=== PATIENT | female | born 1975 | race Caucasian/White ===

== ENCOUNTER 2016-10-29 10:01 | Inpatient (IN) | payer OTHER, BC ==
[2016-10-29] MEDS ORDERED: SODIUM CHLORIDE 500 ML IV ONE (10:24)
[2016-10-29] MEDS ORDERED: ONDANSETRON 4 MG/2 ML VIAL IVPUSH ONE ×2 (10:40→11:34)
[2016-10-29] MEDS ORDERED: ONDANSETRON 4 MG/2 ML VIAL ONE (10:40)
--- NOTE | 2016-10-29 10:40 | PDOC ---
History of Present Illness - General Chief Complaint: Altered Mental Status Stated Complaint: FALL/NONRESPONSE Time Seen by Provider: 10/29/16 10:19 History Source: Significant Other Exam Limitations: Clinical Condition, Unresponsive - History of Present Illness Initial Comments: 10/29/16 10:35 The patient is a 41F with a PMH of DM, HTN, seizure, and kidney failure who presents to the ED via EMS. The patient's fiance is providing the history. The fiance states that the patient began to not feel well yesterday, stating that she lost her appetite. The patient wears an insulin pump and the fiance states that he last saw the pump on at 8 pm last night. The patient is also on dialysis MWF and last had dialysis on Wednesday. This morning she woke up and the fiance states that everything was ok. Around 8:20 am the fiance stepped downstairs and heard a thud, then he went back upstairs and found the patient on the floor snoring with blood dripping out of her mouth. She did not have her insulin pump on and a glucometer reading at the time was read "high". He called EMS. She was brought in by EMS and began seizing after being transferred to a bed. She was taken off seizure medications in May and apparently was on a low dose. She did not have a witnessed seizure at home. Allergies: listed Past History - Past Medical History Allergies/Adverse Reactions: Allergies Allergy/AdvReac Type Severity Reaction Status Date / Time acetaminophen [From Vicodin] Allergy Verified 10/29/16 10:12 codeine Allergy Verified 10/29/16 10:12 hydrocodone bitartrate Allergy Verified 10/29/16 10:12 [From Vicodin] oxycodone HCl [From Percocet] Allergy Verified 10/29/16 10:45 penicillinase Allergy Verified 10/29/16 10:12 tramadol Allergy Verified 10/29/16 10:45 morphine AdvReac Verified 10/29/16 10:45 Home Medications: Ambulatory Orders Atorvastatin Ca [Lipitor] 20 mg PO HS 10/29/16 Gabapentin [Neurontin] 100 mg PO DAILY 10/29/16 Hydralazine HCl 50 mg PO BID 10/29/16 Hydralazine HCl 100 mg PO TID 10/29/16 Insulin (Novolog) [Novolog -] 0 units SQ DAILY 10/29/16 Losartan Potassium [Cozaar] 100 mg PO BID 10/29/16 Metoprolol Tartrate 100 mg PO BID 10/29/16 Sevelamer Carbonate [Renvela] 800 mg NR TID 10/29/16 Dialysis: Yes (mwf) HTN: Yes Seizures: Yes (no meds) - Psycho/Social/Smoking Cessation Hx Anxiety: No Suicidal Ideation: No Smoking History: Unknown if ever smoked Have you smoked in the past 12 months: No Information on smoking cessation initiated: No Hx Alcohol Use: No Drug/Substance Use Hx: No Substance Use Type: None Review of Systems - Review of Systems Able to Perform ROS?: No *Physical Exam - Vital Signs Last Vital Signs Temp Pulse Resp BP Pulse Ox 97.8 F 109 H 23 208/98 98 10/29/16 10:26 10/29/16 10:13 10/29/16 10:13 10/29/16 10:13 10/29/16 10:13 - Physical Exam General Appearance: Yes: Nourished, Other (Responsive only to painful stimuli) HEENT: positive: ENRIQUE, Other (Small lac on L tongue, difficult to visualize full size) Neck: negative: Lymphadenopathy (R), Lymphadenopathy (L) Respiratory/Chest: positive: Lungs Clear, Normal Breath Sounds. negative: Chest Tender, Labored Respiration, Paradoxal Breathing, Crackles, Rales, Rhonchi , Stridor, Wheezing Cardiovascular: positive: Regular Rhythm, Regular Rate, S1, S2. negative: Diastolic Murmur, Systolic Murmur Gastrointestinal/Abdominal: positive: Flat, Soft. negative: Tender, Increased Bowel Sounds, Distended, Guarding, Rebound, Tenderness Extremity: negative: Pedal Edema, Swelling, Calf Tenderness Integumentary: positive: Normal Color, Dry, Warm. negative: Clammy, Diaphoresis Neurologic: positive: Motor Strength 5/5, Respond to painful stimul, Responsive (to commands). negative: Fully Oriented, Alert, Normal Mood/Affect Heart Score/ECG Review - ST and T T Wave Elevation Suggest: Electrolyte Imbalance (hyperkalemia) ED Treatment Course - LABORATORY CBC & Chemistry Diagram: 10/29/16 10:34 10/29/16 10:34 Medical Decision Making - Medical Decision Making 10/29/16 10:43 The patient is a 41F with a PMH of HTN, seizures, DM, and kidney failure who presents via EMS for AMS, seizures, and questionable DKA. Because the patient missed dialysis, electrolyte abnormalities could be the cause of her AMS. Head trauma is also suspected as a result of her fall. DKA is high on the differential due to the patient's presentation. Dr. Villalobos and I have ordered labs and imaging to rule out/in any of the above diagnoses. 10/29/16 11:26 K is 5.8, glucose is 845. Dr. Villalobos has ordered insulin drip. Will give more fluids to the patient and reassess. 10/29/16 12:33 Lab states ketones are high. She will stay on insulin drip. BNP, VBG, acetone will be ordered q4. 10/29/16 12:[address] Perez (ICU travelers' aid worker) and he accepts admission through the hospitalist service. Spoke with Dr. Jose Luis Vazquez (nephro) who said he will see the patient in the ED and dialyze in ICU. 10/29/16 13:[address] Che who will accept admission. Spoke with Dr. Vazquez at bedside and he told me he would dialyze the patient in ICU while titrating to the patient's volume status. *DC/Admit/Observation/Transfer Diagnosis at time of Disposition: Altered mental status Qualifiers: Altered mental status type: unspecified Qualified Code(s): R41.82 - Altered mental status, unspecified - Discharge Dispostion Condition at time of disposition: Stable Admit: Yes
[2016-10-29 10:45] LABS: BASOPHIL 0.9 % (0-2.0); EOSINOPHIL 2.3 % (0-4.5); MCH 25.8 pg (25.7-33.7); MCHC 30.2 g/dl (32.0-36.0); MEAN CELL VOLUME 85.6 fl (80-96); MEAN PLT VOLUME 11.4 fl (7.5-11.1); NEUTROPHILS 81.4 % (42.8-82.8); PLATELET COUNT 200 K/MM3 (134-434); RDW 17.1 % (11.6-15.6); WHITE BLOOD COUNT 12.4 K/mm3 (4.0-10.0)
--- NOTE | 2016-10-29 10:59 | PDOC ---
Attending Attestation - Resident Resident Name: New Lr - ED Attending Attestation I have performed the following: I have examined & evaluated the patient, The case was reviewed & discussed with the resident, I agree w/resident's findings & plan, Exceptions are as noted - HPI HPI: 10/29/16 10:49 41 F with h/o seizure d/o not on meds, IDDM on insulin pump, ESRD on HD MWF, HTN , presents to ER with AMS. Pt was reportedly in usual health this morning per jacqulein. While jacquelin was in bathroom, he heard a thud and found pt on the ground. He believes that she had a seizure because he saw that she bit her tongue. Pt had been complaining of some nausea yesterday. She has not had any F/ C, did not complain of ZAPATA/N/V, no CP/SOB. Jacquelin notes that her insulin pump was turned off this morning. He last saw it on yesterday. Pt's last HD session was this Wednesday. Missed yesterday's HD due to feeling unwell. Pt has had seizures in the past, was on keppra previously but was taken off of it months ago. Jacquelin denies pt having h/o DKA in the past. 10/29/16 11:06 - Physicial Exam PE: 10/29/16 10:59 GENERAL: Awake but somnolent, oriented to person, in no acute distress HEAD: No signs of trauma EYES: PERRLA, EOMI, sclera anicteric, conjunctiva clear ENT: Auricles normal inspection, hearing grossly normal, nares patent, oropharynx clear without exudates. Moist mucosa NECK: Normal ROM, supple, no lymphadenopathy, JVD, or masses LUNGS: Breath sounds equal, clear to auscultation bilaterally. No wheezes, and no crackles HEART: Regular rate and rhythm, normal S1 and S2, no murmurs, rubs or gallops ABDOMEN: Soft, nontender, normoactive bowel sounds. No guarding, no rebound. No masses EXTREMITIES: L AVF with palpable thrill, distal pulses intact NEUROLOGICAL: Cranial nerves II through XII grossly intact. Normal speech, moves all extremities, sensation intact to light touch, follows commands SKIN: Warm, Dry, normal turgor, no rashes or lesions noted. 10/29/16 11:16 - Medical Decision Making 10/29/16 11:16 41 F with ESRD, DM, Sz d/o, HTN presenting with AMS. Was in [facility] this morning. Per fiance, pt had one unwitnessed seizure and one additional seizure en route. Pt's AMS likely post-ictal. Etiology of seizure likely metabolic given critically high FSG of >600. Will r/o DKA. - Labs, VBG - CTH, CXR - 500cc bolus for hyperglycemia, cautious fluids due to ESRD - Likely insulin gtt - Dispo likely to ICU 10/29/16 13:12 Pt in DKA with + serum acetone. - Started on insulin gtt - 1L NS administered total, will hold on additional fluids unless hemodynamically unstable - Renal aware, will dialyze in ICU - Admit to ICU
[2016-10-29 11:13] LABS: ALBUMIN 2.8 g/dl (3.4-5.0); ANION GAP 11 (8-16); BILIRUBIN,TOTAL 0.4 mg/dL (0.2-1.0); CALCIUM 7.7 mg/dL (8.5-10.1); CO2 21 mmol/L (21-32); CREATININE 5.6 mg/dL (0.55-1.02); SGOT/AST 34 U/L (15-37); SGPT/ALT 79 U/L (12-78)
[2016-10-29 11:14] LABS: INR 0.99 (0.82-1.09); PROTHROMBIN TIME (PATIENT) 10.9 SEC (9.98-11.88)
[2016-10-29 11:17] LABS: ALK PHOS 304 U/L (45-117); CPK 292 IU/L (26-192); TOT PROT 6.3 g/dl (6.4-8.2); TROPONIN I < 0.02 ng/ml (0.00-0.05)
[2016-10-29 11:20] LABS: GLUCOSE,RANDOM 845 mg/dL (74-106)
--- NOTE | 2016-10-29 11:20 | EKG ---
Test Reason : Blood Pressure : / mmHG Vent. Rate : 102 BPM Atrial Rate : 102 BPM P-R Int : 142 ms QRS Dur : 076 ms QT Int : 360 ms P-R-T Axes : 066 -04 046 degrees QTc Int : 469 ms SINUS TACHYCARDIA POSSIBLE LEFT ATRIAL ENLARGEMENT BORDERLINE ECG NO PREVIOUS ECGS AVAILABLE Confirmed by ADELIA SUMMERS MD ([id number]) on 10/29/2016 11:20:33 AM Referred By: Confirmed By:ADELIA SUMMERS MD
[2016-10-29] MEDS ORDERED: INSULIN REGULAR HUMAN 100 UNITS/ML *VIAL IVPUSH ONE (11:21)
[2016-10-29] MEDS ORDERED: INSULIN REGULAR 100 UNITS in SODIUM CHLORIDE 99 ML IVPB SCH (11:30)
[2016-10-29 11:40] LABS: VENOUS BLOOD GAS HCO3 17.8 meq/L (19-25); VENOUS PH 7.26 (7.32-7.42)
[2016-10-29] MEDS ORDERED: METOCLOPRAMIDE HCL INJECTION 10 MG/2 ML VIAL IVPB ONE (12:07)
[2016-10-29] MEDS ORDERED: METOCLOPRAMIDE HCL INJECTION 10 MG/2 ML VIAL ONE (12:07)
--- NOTE | 2016-10-29 13:15 | CON.NEP ---
Consult Consult Specialty:: Nephrology (Anders/George) Referred by:: Dr. Villalobos Reason for Consultation:: ESRD on HD/AMS/Seizure - History of Present Illness Chief Complaint: AMS/Seizure History of Present Illness: This is a 41 year old woman with PMhx of ESRD on HD (Started this May,), insulin dependent diabetes, hypertension persented with AMS and suspected seizure at home with witnessed seizure in the ED. Boyfriend states that she was hypoglycemia in the AM with glucose of 36 and was given johnna jung and a few minutes later she was found on the floor. BG was ~600 when rechecked. Reports that she was off her insulin pump overnight. Pt missed dialysis yesterday because she said she felt unwell. Pt currently on insulin pump and awaiting ICU admission. 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 Cardio/Vascular: Yes: HTN Renal/: Yes: Renal Failure, Hemodialysis Endocrine: Yes: Diabetes Mellitus - Past Surgical History Additional Surgical History: HERO Graft Placement - Alcohol/Substance Use Hx Alcohol Use: No - Smoking History Smoking history: Unknown if ever smoked Have you smoked in the past 12 months: No Home Medications - Allergies Allergies/Adverse Reactions: Allergies Allergy/AdvReac Type Severity Reaction Status Date / Time acetaminophen [From Vicodin] Allergy Verified 10/29/16 10:12 codeine Allergy Verified 10/29/16 10:12 hydrocodone bitartrate Allergy Verified 10/29/16 10:12 [From Vicodin] oxycodone HCl [From Percocet] Allergy Verified 10/29/16 10:45 penicillinase Allergy Verified 10/29/16 10:12 tramadol Allergy Verified 10/29/16 10:45 morphine AdvReac Verified 10/29/16 10:45 - Home Medications Home Medications: Ambulatory Orders Atorvastatin Ca [Lipitor] 20 mg PO HS 10/29/16 Gabapentin [Neurontin] 100 mg PO DAILY 10/29/16 Hydralazine HCl 50 mg PO BID 10/29/16 Hydralazine HCl 100 mg PO TID 10/29/16 Insulin (Novolog) [Novolog -] 0 units SQ DAILY 10/29/16 Losartan Potassium [Cozaar] 100 mg PO BID 10/29/16 Metoprolol Tartrate 100 mg PO BID 10/29/16 Sevelamer Carbonate [Renvela] 800 mg NR TID 10/29/16 Family Disease History - Family Disease History Family History: Unable to Obtain Review of Systems Unable to obtain ROS, reason: beacsue of clinical statu Nephrology Consult - Height Height: 5 ft 4 in - Weight Weight: 132 lb - BMI Body Mass Index (BMI): 22.6 - Lab Results CBC,BMP: CBC, BMP 10/29/16 10:34 10/29/16 10:34 Anion Gap: Anion Gap Anion Gap 11 (8-16) 10/29/16 10:34 - Imaging Chest X-ray: Report Reviewed Cat Scan: Report Reviewed - Physical Examination Vital Signs: Vital Signs Temperature 97.8 F 10/29/16 10:26 Pulse Rate 118 H 10/29/16 12:39 Respiratory Rate 18 10/29/16 12:39 Blood Pressure 190/109 10/29/16 12:39 O2 Sat by Pulse Oximetry (%) 98 10/29/16 12:39 Constitutional: Yes: No Distress, Other (Lethargic, sleeping) Neck: Yes: Supple Cardiovascular: Yes: Tachycardia. No: Murmur, Rub Respiratory: Yes: Regular, CTA Bilaterally Gastrointestinal: Yes: Normal Bowel Sounds, Soft. No: Tenderness Renal/: No: Bladder Distention Access for Hemodialysis: AV Graft (deminished thrill) Extremities: No: Cold, Cool, Cyanosis Edema: Yes Edema: LLE: 1+, RLE: 1+ Neurological: Yes: Lethargy, Seizure Problem List - Problems (1) Seizure Code(s): R56.9 - UNSPECIFIED CONVULSIONS (2) ESRD (end stage renal disease) on dialysis Code(s): N18.6 - END STAGE RENAL DISEASE Z99.2 - DEPENDENCE ON RENAL DIALYSIS (3) Hyperkalemia Code(s): E87.5 - HYPERKALEMIA (4) Hyperglycemia Code(s): R73.9 - HYPERGLYCEMIA, UNSPECIFIED Assessment/Plan 41 year old woman with PMhx of ESRD on HD (Started this May,), insulin dependent diabetes, hypertension presented with AMS and suspected seizure at home with witnessed seizure in the ED. #Seizure/AMS CT head negative ICU admission Neurology consult Seizure and fall precautions #Hyperglycemia/? DKA PT with trace serum acteones Corrected Anion gap is 13-14 ph is ~7.31 when converted from VBG to ABG on insulin pump would be cautious with IVF given ESRD/volume overload #ESRD on HD with hyperkalemia will plan for dialysis today in the ICU HD nurse to access Hero graft for good function UF goal is ~2.5L will access for additional dialysis in am #Pseudohyponatremia Corrected Na is 145 #Leukocytosis r/o occult infection check cultures UA is pending Thank you Will follow Jose Luis Vazquez DO
[2016-10-29] MEDS ORDERED: IBUPROFEN 800 MG/8 ML IJ IVPB ONE ×2 (15:13→15:15)
[2016-10-29] MEDS ORDERED: SODIUM CHLORIDE 1,000 ML IV SCH ×2 (15:15→18:52)
--- NOTE | 2016-10-29 16:13 | CONSULT ---
Consult Consult Specialty:: PULM/CCM Referred by:: ER Reason for Consultation:: Elevated blood sugar - History of Present Illness Chief Complaint: Seizure History of Present Illness: 41 F, ESRD on HD recently started in May, MWF via a Hero graft in [place]. Additional history of insulin dependent diabetes, hypertension, and seizure D/ O. Apparently her AEDs were stopped in May. Patient had a witnessed seizure at home and apparently had a seizure in the ER. Apparently she was also hypoglycemic in the AM with glucose of 36 and was given johnna jung. A few minutes later she was found on the floor and her blood sugar was 600. Patient's insulin pump was apparently off. Lab analysis revealed severe hypergylcemia and electrolyte derrangement. Patient is not able to provide a history. 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 Cardio/Vascular: Yes: HTN Renal/: Yes: Renal Failure, Hemodialysis Endocrine: Yes: Diabetes Mellitus - Past Surgical History Additional Surgical History: HERO Graft Placement - Alcohol/Substance Use Hx Alcohol Use: No - Smoking History Smoking history: Unknown if ever smoked Have you smoked in the past 12 months: No Home Medications - Allergies Allergies/Adverse Reactions: Allergies Allergy/AdvReac Type Severity Reaction Status Date / Time codeine Allergy Verified 10/29/16 10:12 hydrocodone bitartrate Allergy Verified 10/29/16 10:12 [From Vicodin] oxycodone HCl [From Percocet] Allergy Verified 10/29/16 10:45 penicillinase Allergy Verified 10/29/16 10:12 tramadol Allergy Verified 10/29/16 10:45 morphine AdvReac Verified 10/29/16 10:45 - Home Medications Home Medications: Ambulatory Orders Atorvastatin Ca [Lipitor] 20 mg PO HS 10/29/16 Gabapentin [Neurontin] 100 mg PO DAILY 10/29/16 Hydralazine HCl 50 mg PO BID 10/29/16 Hydralazine HCl 100 mg PO TID 10/29/16 Insulin (Novolog) [Novolog -] 0 units SQ DAILY 10/29/16 Losartan Potassium [Cozaar] 100 mg PO BID 10/29/16 Metoprolol Tartrate 100 mg PO BID 10/29/16 Sevelamer Carbonate [Renvela] 800 mg NR TID 10/29/16 Review of Systems Unable to obtain ROS, reason: not able to provide Physical Exam Vital Signs: Vital Signs Temperature 102.8 F H 10/29/16 15:25 Pulse Rate 122 H 10/29/16 15:25 Respiratory Rate 26 H 10/29/16 15:25 Blood Pressure 205/97 10/29/16 15:25 O2 Sat by Pulse Oximetry (%) 98 10/29/16 14:22 Constitutional: Yes: Other (altered) Eyes: No: Sclera Icterus HENT: Yes: Atraumatic, Normocephalic Neck: Yes: Supple, Trachea Midline Cardiovascular: Yes: Tachycardia Respiratory: Yes: On Nasal O2, Tachypnea. No: Accessory Muscle Use, Intubated, Rhonchi, Stridor, Wheezes Gastrointestinal: Yes: Soft Renal/: Yes: Other (HD dependent) Musculoskeletal: Yes: WNL Extremities: Yes: WNL Edema: No Peripheral Pulses WNL: Yes Integumentary: Yes: WNL Neurological: Yes: Confusion, Lethargy. No: Facial Droop Imaging - Results Chest X-ray: Report Reviewed, Image Reviewed Cat Scan: Report Reviewed, Image Reviewed Problem List - Problems (1) Altered mental status Code(s): R41.82 - ALTERED MENTAL STATUS, UNSPECIFIED Qualifiers: Altered mental status type: unspecified Qualified Code(s): R41.82 - Altered mental status, unspecified (2) ESRD (end stage renal disease) on dialysis Code(s): N18.6 - END STAGE RENAL DISEASE Z99.2 - DEPENDENCE ON RENAL DIALYSIS (3) Seizure Code(s): R56.9 - UNSPECIFIED CONVULSIONS (4) Fever Code(s): R50.9 - FEVER, UNSPECIFIED (5) Hyperglycemic hyperosmolar nonketotic coma Code(s): E11.01 - TYPE 2 DIABETES MELLITUS WITH HYPEROSMOLARITY WITH COMA Assessment/Plan IV Insulin Cautious hydration Baig-culture Empiric ABX coverage : Vanco/Aztreonam ID consult Seizure precautions Neuro evaluation Access to be inserted (see procedure note) Follow CMP / BGM ICU monitoring Dr Oscar Total Critical Care Time: 40 Critical Care Statement: The care of this patient involved high complexity decision making to prevent further life threatening deterioration of the patient 's condition and/or to evalute & treat vital organ system(s) failure or risk of failure.
[2016-10-29] MEDS ORDERED: LORazepam 2 MG/ML SDV VIAL ONE (16:17)
[2016-10-29] MEDS ORDERED: VANCOMYCIN 1 GRAM (PRE-DOCKED) 250 ML IVPB ONE (16:22)
[2016-10-29] MEDS ORDERED: ACETAMINOPHEN 1000 MG/100 ML VIAL (NON FORMULARY) IVPB ONE (16:37)
[2016-10-29] MEDS ORDERED: AZTREONAM 2 GM in DEXTROSE 5%-WATER - 100 ML IVPB ONE (16:40)
--- NOTE | 2016-10-29 16:44 | PROC ---
Central Line Insertion Indication: Other (dialysis-no access ) Risks and Benefits Explained: Yes Consent on Chart: Yes Central Line: Dialysis Cath, Tri Lumen Sterile Technique: Yes Ultrasound Guided Assistance: Yes Position: Right Femoral Post Insertion: Yes: Other (N/A ) Sterile Dressing Applied: Yes
[2016-10-29] MEDS ORDERED: FOSPHENYTOIN SODIUM IVPB ONE (17:14)
[2016-10-29] MEDS ORDERED: SODIUM CHLORIDE IVPB ONE (17:14)
[2016-10-29 17:49] LABS: ANION GAP 10 (8-16); CALCIUM 7.3 mg/dL (8.5-10.1); CO2 22 mmol/L (21-32); CREATININE 4.9 mg/dL (0.55-1.02); GLUCOSE,RANDOM 266 mg/dL (74-106)
--- NOTE | 2016-10-29 17:49 | CONSULT ---
Consultation: REQUESTING PROVIDER: CONSULT REQUEST: ICU PCP: In [place] Dr. Konstantin Hutchinson [phone] HISTORY OF PRESENT ILLNESS: History obtained from fiance and sister. Patient is a 41 year old female with significant past medical history of Type 1 DM, Diabetic retinopathy, Hypertension, Hyperlipidemia, ESRD on dialysis MWF, seizure presented to the ED after she was found unconscious on the floor. As per the fiance, yesterday she said she wasn't feeling well, decreased appetite, had nausea but no vomiting. This morning, she woke up at 7am, finance heard a loud noise, found her on the floor. He checked stat sugar and it was 37, ice tea was given and after few minutes, she started having altered mental status, started screaming, they rechecked the blood sugar and it was 600 mg/dl, then they immediately brought her here. Angie mentions that she had similar episode in the past, had last seizure was in May,, the doctor told them that she had seizure due to hyperglycemia. Initially she was given Dilantin but it was stopped since May,. Patients last dialysis was on Wednesday. She is awaiting for pancreas and kidney transplantation in [place]. Lives in [place], came here for vacation and was planning to back in 11/09/2016. Patient transferred from ER to the ICU for further management. Emergent dialysis was started in the ICU. However, the fistula wasn't functioning hence femoral catheter was placed, dialysis total of 3.5 hours is being done, with removal of 2.5 L of fluid. Fistula was created about 2 months ago since the graft wasn't functioning. Family at bed side. Past Medical History: Type 1 DM, Diabetic retinopathy, Hypertension, Hyperlipidemia, ESRD on dialysis MWF, seizure Allergies: Codeine, Hydrocodone, Oxycodone, Penicillin Surgical Hx: Fistula in left forearm, Appendectomy, Right Knee surgery, tubal ligation Hospitalization: May, for similar medical condition Social hx:Lives in [place], has 4 kids Smoking, alcohol, drugs-denies REVIEW OF SYSTEMS: Unable to obtain ROS PHYSICAL EXAMINATION Vital Signs - 24 hr 10/29/16 10/29/16 10/29/16 14:21 14:22 15:25 Temperature 102.8 F H Pulse Rate 122 H Pulse Rate [ 120 H Radial] Respiratory 19 26 H Rate Blood Pressure 205/97 Blood Pressure 200/141 [Right Arm] O2 Sat by Pulse 92 L 98 Oximetry (%) 10/29/16 10/29/16 10/29/16 16:25 16:30 17:00 Temperature 103 F H Pulse Rate 140 H 139 H 139 H Pulse Rate [ Radial] Respiratory 23 22 23 Rate Blood Pressure 197/99 218/99 227/108 Blood Pressure [Right Arm] O2 Sat by Pulse Oximetry (%) 10/29/16 10/29/16 17:18 17:30 Temperature Pulse Rate 140 H Pulse Rate [ Radial] Respiratory 22 Rate Blood Pressure 167/129 Blood Pressure [Right Arm] O2 Sat by Pulse 100 Oximetry (%) GENERAL: Young female, drowsy but arousable, in no acute distress. HEAD: Normal with no signs of trauma. 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 EARS, NOSE, THROAT: Ears normal. Dry mucous membranes. NECK: Supple. LUNGS: Breath sounds equal, clear to auscultation bilaterally. No wheezes, and no crackles. No accessory muscle use. HEART: Tachycardic, Regular rate and rhythm, normal S1 and S2 without murmur. ABDOMEN: Soft, nontender, not distended, normoactive bowel sounds, no guarding, no rebound, no masses. No hepatomegaly or splenomegaly. MUSCULOSKELETAL: Normal range of motion at all joints. No bony deformities or tenderness. No CVA tenderness. UPPER EXTREMITIES: RIGHT:2+ pulses, warm, well-perfused. No cyanosis. No clubbing. Cap refill <2 seconds. No peripheral edema. LEFT UPPER EXT: Fistula in the left arm, swollen and tender, slightly erythematous, increased temperature. LOWER EXTREMITIES: 2+ pulses, warm, well-perfused. No calf tenderness. No peripheral edema. NEUROLOGICAL: PEERL, all four extremities range of motion normal, rest of the neuro exam couldn't be done. PSYCHIATRIC: Uncooperative. Poor eye contact. SKIN: Warm, dry, normal turgor, no rashes or lesions noted. Laboratory Results - last 24 hr 10/29/16 17:11 Random Glucose Cancelled Active Medications Generic Name Dose Route Start Last Admin Trade Name Freq PRN Reason Stop Dose Admin Chlorhexidine Gluconate 1 applic 10/29/16 22:00 Hibiclens For Decolonization - TP HS SUMMER Insulin Human Regular 100 100 mls @ 5.98 mls/hr 10/29/16 11:30 10/29/16 15:39 units/ Sodium Chloride IVPB 0.1 units/kg/hr TITR SUMMER Titration Protocol 0.1 UNITS/KG/HR Sodium Chloride 1,000 mls @ 125 mls/hr 10/29/16 15:15 10/29/16 15:32 Normal Saline - IV 125 mls/hr ASDIR SUMMER Administration Mupirocin 1 applic 10/29/16 22:00 Bactroban Ointment (For Decolonization) - NS 11/03/16 21:59 BID SUMMER Phenytoin Sodium 200 mg 10/30/16 10:00 Dilantin - PO BID SUMMER ASSESSMENT/PLAN: Patient is a 41 year old female with significant past medical history of Type 1 DM, Diabetic retinopathy, Hypertension, Hyperlipidemia, ESRD on dialysis MWF, seizure presented to the ED after she was found unconscious on the floor. # Sepsis- unknown etiology R/O infection from the fistula vs Hero catheter R/o lyme disease, lyme titres sent. R/O Meningitis, Spinal tap was done at bed side by Dr. Mcgee, CSF looks clear, csf studies sent. One dose of IV Aztreonam and IV Vancomycin 1000 gm. Blood cultures/Urine culture pending Lyme titres in am. Duplex of the left upper arm ordered, official report pending. High suspicion of infection from the blood clot in the catheter. ID consult requested urine toxicology sent Neurology: Altered Mental Status Seizure most likely secondary to Hyperglycemia Patient started having seizures in the ICU, initially was generalized tonic clonic and later it was focal, lasted for about 20 minutes despite giving Ativan. Finally stopped seizing after she received Fosphenytoin 1200mg loading dose. Dilantin 200mg IV BID to be continued. Had similar episode in the past. Head CT negative Fall precautions and aspiration precautions Discussed about the plan with Dr. Mcgee, he agrees Endocrinology: DKA vs Hyperosmolar Hyperglycemic nonketotic syndrome Serum osmolality pending On arrival, Random blood sugar was 845 with a corrected AG of 14, insulin drip @ 6units/hr was started in the ED and continued Finger stick glucose checked every hourly and BGM checked every 4 hourly After 7 hours, patients AG closed, sugar was 266, Levemir 20U given and insulin drip was stopped. Fluid changed to D5-1/2 NS @ 83mls/hr Insulin sliding scale Renal ESRD Creatinine 5.6, baseline unknown. Undergoing dialysis, 3.5 hours, 2L fluids to be removed Will repeat electrolytes post dialysis Awaiting kidney and pancreas transplant in [place]. Santana catheter placed, output- 700mls, urine culture and urine toxicology sent. Patient has had multiple surgeries in the left upper arm for fistula, Hyperkalemia without EKG changes K-5.8, Emergent dialysis was done, repeat K was 4.3 Hyponatremia Na-127 on arrival, corrected sodium 145, now repeat sodium is 135 and corrected sodium is 139 mg/dl Continue D5-1/2 NS Lactic acidosis most likely secondary to seizure Lactic acid 4.2, will trend Gentle hydration Cardiology Hypertension On arrival BP was high but now its improving during dialysis. If BP is still elevated, will give Labetolol Home meds: Hydralazine 50mg TID, Losartan 100mg BID, Metoprolol 100mg BID , will restart once patient tolerates PO Hyperlidpidemia On Statin 20mg Daily, will start once she tolerates orally. FEN IV D5-1/2 NS @ 83mls/hr Electrolytes to be checked every 4 hrly and finger stick every hrly NPO Prophylaxis For DVT-on Scds For GI: Not indicated Code Status: Full Code Dispo: Admitted in ICU. Family members at bed side. Finance Mr. Dav Antoine ); Sister Geneva Kumar [phone] Illness, Investigation and Plan of care explained to the patients sister and Jacquelin. They verbalized understanding. Case seen and discussed with Dr. Oscar. Dispo: We will continue to follow the patient. Thank you for this consultative opportunity. Visit type - Emergency Visit Emergency Visit: Yes ED Registration Date: 10/29/16 Care time: The patient presented to the Emergency Department on the above date and was hospitalized for further evaluation of their emergent condition. - New Patient This patient is new to me today: Yes Date on this admission: 10/29/16 - Critical Care Critical Care patient: Yes Total Critical Care Time (in minutes): 35 Critical Care Statement: The care of this patient involved high complexity decision making to prevent further life threatening deterioration of the patient 's condition and/or to evaluate & treat vital organ system(s) failure or risk of failure.
[2016-10-29 18:22] VITALS: BMI 25.3
[2016-10-29] MEDS ORDERED: PNEUMOC 13-VAL CONJ-DIP CRM/PF 0.5 ML DISP.SYRIN IM ONE (18:30)
[2016-10-29] MEDS ORDERED: INSULIN DETEMIR 100 UNITS/ML MDV SQ ONE (18:49)
[2016-10-29] MEDS ORDERED: DEXTROSE 5%-0.45% SALINE 1,000 ML IV SCH (19:45)
[2016-10-29 20:27] LABS: ANION GAP 7 (8-16); CALCIUM 7.6 mg/dL (8.5-10.1); CO2 29 mmol/L (21-32); CREATININE 2.4 mg/dL (0.55-1.02); GLUCOSE,RANDOM 107 mg/dL (74-106)
--- NOTE | 2016-10-29 21:12 | HP ---
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 Cardiovascular: Yes: HTN Renal/: Yes: Renal Failure, Hemodialysis ...: No (tubal ligation in past) Endocrine: Yes: Diabetes Mellitus - Smoking History Smoking history: Unknown if ever smoked Have you smoked in the past 12 months: No - Alcohol/Substance Use Hx Alcohol Use: No Home Medications - Allergies Allergies/Adverse Reactions: Allergies Allergy/AdvReac Type Severity Reaction Status Date / Time codeine Allergy Verified 10/29/16 10:12 hydrocodone bitartrate Allergy Verified 10/29/16 10:12 [From Vicodin] oxycodone HCl [From Percocet] Allergy Verified 10/29/16 10:45 penicillinase Allergy Verified 10/29/16 10:12 tramadol Allergy Verified 10/29/16 10:45 morphine AdvReac Verified 10/29/16 10:45 - Home Medications Home Medications: Ambulatory Orders Atorvastatin Ca [Lipitor] 20 mg PO HS 10/29/16 Gabapentin [Neurontin] 100 mg PO DAILY 10/29/16 Hydralazine HCl 50 mg PO BID 10/29/16 Hydralazine HCl 100 mg PO TID 10/29/16 Insulin (Novolog) [Novolog -] 0 units SQ DAILY 10/29/16 Losartan Potassium [Cozaar] 100 mg PO BID 10/29/16 Metoprolol Tartrate 100 mg PO BID 10/29/16 Sevelamer Carbonate [Renvela] 800 mg NR TID 10/29/16 Physical Examination Vital Signs: Vital Signs Temperature 97.8 F 10/29/16 19:36 Pulse Rate 121 H 10/29/16 20:05 Respiratory Rate 23 10/29/16 20:05 Blood Pressure 166/85 10/29/16 20:05 O2 Sat by Pulse Oximetry (%) 100 10/29/16 17:18 Labs: CBC, BMP 10/29/16 19:20
[2016-10-29] MEDS: PHENYTOIN SODIUM 100 MG/2 ML VIAL IVPB SCH (21:24)
[2016-10-29] MEDS ORDERED: niCARdipine HCL 25 MG/10 ML AMPUL IVPB ONE (21:26)
[2016-10-29] MEDS: NICARDIPINE 25 MG in DEXTROSE 5%-WATER - 240 ML IVPB SCH (21:38)
[2016-10-29] MEDS ORDERED: CHLORHEXIDINE GLUCONATE 4% CLEANSER FOR DECOLONIZATION TP SCH (22:00)
[2016-10-29 22:13] LABS: URINE MARIJUANA THC NEGATIVE ng/ml (CUTOFF=50)
[2016-10-29] MEDS: MUPIROCIN 2% TOPICAL OINTMENT FOR DECOLONIZATION NS SCH (22:23)
[2016-10-29] MEDS ORDERED: LIDOCAINE HCL/PF 2% SDV 5ML VIAL ONE (22:55)
--- NOTE | 2016-10-29 23:40 | CONSULT ---
Consult - text type - Consultation Consultation Note: NEUROLOGY CONSULTATION is greatly appreciate: This 41 yo woman with h/o HTN, DM and ESRD is on HD x 2 years awaiting renal transplant. On Hydralazine, atorvastatin, losartan, metoprolol, renvala, and insulin pump. On HD M, W, F. Last HD Wednesday H/O seizures in the past with Dilantin D/C'ed in May of this year. According to her partner she has felt unwell x few days and D/C'ed her pump. This AM was fine upon awakening and went to the kitchen when her Financee heard her fall and found her, stertourous with bleeding from the mouth. Hyperglycemia was subsequently documented (>600, >800). In ICU Pt was on HD when she began to exhibit generalized Tonic-clonic seizures refractory to lorazepam 2 mg x 4. Seizures stopped after Phosphenitoin 1200 PE. Now on Dilantin 200 q12 hrs. Pt remains lethargic and febrile to 103. On vancomicin and azetreonam. Procedural note: Following sterile prep Lumbar puncture was performed in the L3L4 interspace with the patient in the left lateral decubitus position. Opening pressure was 210 mm CSF with normal respiratory variations. Queckenstedt's maneuver was not performed. 15 cc of clear, non-xanthochromic CSF was removed and sent for routines, cultures, etc (see orders). The procedure was well-tolerated. EXAM: Lethargic but arousable. Pupils 5 mm reactive. Corneals +/+. Full EOM's. Withdraws all fours to pinch. IMP: Seizure disorder, type undetermined. Status epilepticus. Exacerbated by multiple toxic-metabolic factors including sepsis, hyperglycemia and electrolyte imbalance. SUGGEST: Continue antibiotics and hydration. Continue dilantin 200 mg IVPB q 12 hrs. Follow lytes and DPH levels. Thank you very much, Issac Mcgee MD
--- NOTE | 2016-10-29 23:47 | PROC ---
Lumbar Puncture Risks and Benefits Explained: Yes Consent on Chart: Yes Sterile Technique: Yes Skin prep: Chlorhexidine Position: Right lateral decubitus Site: L4-L51 Local Anesthesia: 1% Lidocaine with epi Opening Pressure(mmHg): 21cm H2O Closing Pressure(mmHg): NOT MEASURED CSF Color, Appearance: Clear Sterile Dressing Applied: Yes Remarks: Procedure done by Dr. Issac Mcgee.
[2016-10-30 00:39] LABS: CSF APPEARANCE CLEAR; CSF COLOR COLORLESS
[2016-10-30 00:40] LABS: CSF RBC 0
[2016-10-30 00:41] LABS: CSF APPEARANCE CLEAR; CSF COLOR COLORLESS; CSF RBC 0
[2016-10-30 01:09] LABS: ANION GAP 8 (8-16); CALCIUM 7.1 mg/dL (8.5-10.1); CO2 30 mmol/L (21-32); CREATININE 3.3 mg/dL (0.55-1.02); GLUCOSE,RANDOM 54 mg/dL (74-106)
[2016-10-30] MEDS ORDERED: niCARdipine HCL 25 MG/10 ML AMPUL IVPB ONE (01:43)
[2016-10-30] MEDS: NICARDIPINE 25 MG in DEXTROSE 5%-WATER - 240 ML IVPB SCH (01:53)
[2016-10-30] MEDS ORDERED: ACETAMINOPHEN 1000 MG/100 ML VIAL (NON FORMULARY) IVPB ONE (02:24)
[2016-10-30] MEDS ORDERED: DEXTROSE 50%-WATER 50 ML DISP.SYRIN ONE (03:57)
[2016-10-30 04:27] LABS: GLUCOSE,CSF 67 mg/dL (50-80)
[2016-10-30 06:07] LABS: BASOPHIL 0.5 % (0-2.0); EOSINOPHIL 0.1 % (0-4.5); MCH 25.7 pg (25.7-33.7); MCHC 31.6 g/dl (32.0-36.0); MEAN CELL VOLUME 81.5 fl (80-96); MEAN PLT VOLUME 10.9 fl (7.5-11.1); NEUTROPHILS 87.4 % (42.8-82.8); PLATELET COUNT 267 K/MM3 (134-434); RDW 16.7 % (11.6-15.6); WHITE BLOOD COUNT 15.3 K/mm3 (4.0-10.0)
[2016-10-30 06:36] LABS: CHOLESTEROL 124 mg/dL (50-200); LDL CHOLESTEROL (ONLY SJRH) 51 mg/dL (5-100)
[2016-10-30 06:43] LABS: ALBUMIN 2.2 g/dl (3.4-5.0); ANION GAP 10 (8-16); CO2 28 mmol/L (21-32); GLUCOSE,RANDOM 59 mg/dL (74-106); MAGNESIUM 1.6 mg/dL (1.8-2.4)
[2016-10-30 06:47] LABS: ALK PHOS 191 U/L (45-117); BILIRUBIN,TOTAL 0.6 mg/dL (0.2-1.0); CREATININE 3.7 mg/dL (0.55-1.02); PHOSPHOROUS 4.1 mg/dL (2.5-4.9); SGOT/AST 42 U/L (15-37); SGPT/ALT 54 U/L (12-78); TOT PROT 5.5 g/dl (6.4-8.2)
[2016-10-30 06:57] LABS: CALCIUM 6.9 mg/dL (8.5-10.1)
--- NOTE | 2016-10-30 07:10 | PN ---
Progress Note, Physician Chief Complaint: ID Full note dictated and discussed with ICU staff and . ESRD with a catheter here in [place] from [place] where she lives. Awaiting a kidney transplant was fine until yesterday when her found her unreponsive on floor at home. She is diabetic on insulin and blind. Gets dialysis at [facility] locally. Does not respond to verbal commands presently Febrile Has a catheter fistula is occluded with occlusive thrombus within the fistula. - Current Medication List Current Medications: Active Medications Chlorhexidine Gluconate (Hibiclens For Decolonization -) 1 applic TP HS SUMMER Last Admin: 10/29/16 22:24 Dose: 1 applic Dextrose/Sodium Chloride (D5-1/2ns -) 1,000 mls @ 83 mls/hr IV ASDIR SUMMER Last Admin: 10/29/16 21:39 Dose: 83 mls/hr Nicardipine HCl 25 mg/ (Dextrose) 250 mls @ 50 mls/hr IVPB TITR SUMMER; 5 MG/HR PRN Reason: Protocol Last Admin: 10/30/16 01:53 Dose: 50 mls/hr Mupirocin (Bactroban Ointment (For Decolonization) -) 1 applic NS BID SUMMER Stop: 11/03/16 21:59 Last Admin: 10/29/16 22:23 Dose: 1 applic Phenytoin Sodium (Dilantin Injection -) 200 mg IVPB BID [facility] Last Admin: 10/29/16 21:24 Dose: 200 mg - Objective Vital Signs: Vital Signs Temperature 100.8 F H 10/30/16 05:00 Pulse Rate 109 H 10/30/16 05:00 Respiratory Rate 24 10/30/16 05:00 Blood Pressure 122/62 10/30/16 05:00 O2 Sat by Pulse Oximetry (%) 100 10/29/16 21:00 Constitutional: Yes: Well Nourished, Mild Distress, Other (Does not reponsd) Eyes: Yes: WNL, Conjunctiva Clear HENT: Yes: WNL, Atraumatic, Normocephalic, Other (no petechiae) Neck: Yes: WNL, Supple Cardiovascular: Yes: Regular Rate and Rhythm, S1, S2. No: Murmur Respiratory: Yes: WNL, Regular, CTA Bilaterally Gastrointestinal: Yes: WNL, Normal Bowel Sounds, Soft Extremities: Yes: Other (Left fistula upper extremity nontender can be palpated as it enters the chest Right arm edema) Labs: CBC, BMP 10/30/16 05:15 10/30/16 05:15 INR, PTT INR 0.99 (0.82-1.09) 10/29/16 10:34 Problem List - Problems (1) ESRD (end stage renal disease) on dialysis Code(s): N18.6 - END STAGE RENAL DISEASE Z99.2 - DEPENDENCE ON RENAL DIALYSIS (2) Hyperglycemic hyperosmolar nonketotic coma Code(s): E11.01 - TYPE 2 DIABETES MELLITUS WITH HYPEROSMOLARITY WITH COMA (3) Seizure Code(s): R56.9 - UNSPECIFIED CONVULSIONS (4) Sepsis Code(s): A41.9 - SEPSIS, UNSPECIFIED ORGANISM Assessment/Plan Laboratory Tests 10/29/16 10/29/16 10/29/16 10:34 10:34 10:34 WBC Hgb Hct Plt Count Lymphocytes % INR 0.99 VBG pH POC VBG pCO2 POC VBG pO2 Sodium 127 L Potassium 5.8 H BUN Creatinine Creat Clearance w eGFR Random Glucose 845 H* Lactic Acid Total Bilirubin AST Alkaline Phosphatase Albumin Ur Leukocyte Esterase Pending CSF Appearance CSF Color CSF WBC CSF RBC 10/29/16 10/29/16 10/30/16 11:35 17:11 00:01 WBC Hgb Hct Plt Count Lymphocytes % INR VBG pH 7.26 L POC VBG pCO2 41.3 POC VBG pO2 51.9 H Sodium Potassium BUN Creatinine Creat Clearance w eGFR Random Glucose Lactic Acid 4.2 H* Total Bilirubin AST Alkaline Phosphatase Albumin Ur Leukocyte Esterase CSF Appearance Clear CSF Color Colorless CSF WBC 0 CSF RBC 0 10/30/16 10/30/16 05:15 05:15 WBC 15.3 H Hgb 10.0 L Hct 31.8 L Plt Count 267 D Lymphocytes % 7.6 L D INR VBG pH POC VBG pCO2 POC VBG pO2 Sodium Potassium BUN 24 H Creatinine 3.7 H Creat Clearance w eGFR 13.64 Random Glucose Lactic Acid Total Bilirubin 0.6 D AST 42 H D Alkaline Phosphatase 191 H D Albumin 2.2 L D Ur Leukocyte Esterase CSF Appearance CSF Color CSF WBC CSF RBC CT neg infarct CVA mass lesion abscess Assessment Sepsis syndrome ESRD Occlusion of dialysis catheter with edema of left arm from hand Diabates Visually impaired Hyperosmolar nonketotic Seizure disorder Peniciilin reaction Metabolic encephalopathy Plan As discussed with ICU team Cultures pending Vancomycin Aztreonam ESR CRP ECHO Vancom level now Consideration going forward of need to remove catheter Critical care time spent YES 40 minutes Glenn SMITH
[2016-10-30] MEDS ORDERED: DEXTROSE 10%-WATER - 1,000 ML IV SCH ×2 (08:00→12:33)
--- NOTE | 2016-10-30 08:27 | CONS ---
DATE OF CONSULTATION: DATE OF DICTATION: 10/30/2016 HISTORY OF PRESENT ILLNESS: This is a 41-year-old female who lives in [place] and is brought to the intensive care unit for evaluation of altered mental status and fever. The patient is a type 1 diabetic with retinopathy, blindness, and hypertension, who is also on chronic hemodialysis in [place] where she lives with her . She is actually up here in [place] for the last month on a transplant list for a kidney transplant. She presented to the emergency room with a seizure after she was found by her fiance unconscious on the floor. Her fiance had found her earlier in the morning on the floor and according to the notes did a stat blood sugar which was 37. She was given iced tea and sugar and brought to the emergency room. She has apparently had seizures in the past, last in May 2016, and was told that they were due to hyperglycemia. She had been given Dilantin at some point, but it apparently had been stopped now for several months. Her last dialysis was 5 days ago. The notes also indicate that she is awaiting a pancreatic transplant as well. Here, she was noted to have a blood sugar over 800 with what was thought to be hyperosmolar nonketotic electrolyte imbalance. She was also noted to be febrile and has a catheter/fistula in the left arm which is nonfunctioning. A CAT scan of the head was obtained which ruled out any stroke or abscess. A lumbar puncture was also performed which had no red cells nor white cells. After discussion with Dr. Oscar, I recommended that she be treated with vancomycin and 2 g of aztreonam as she apparently has some type of serious PENICILLIN allergy. An ultrasound of the venous fistula showed an intraluminal occlusive thrombus beginning near the distal anastomosis within the left upper extremity near the elbow and the occlusive intraluminal thrombus within the fistula graft material extending proximally within the distal graft near the level of the left subclavian vein. Blood cultures were obtained which are currently pending. At the present time, the patient is poorly responsive. She does not answer any questions. PAST MEDICAL HISTORY: As noted above. MEDICATIONS: Per the emergency room list: 1. Atorvastatin. 2. Neurontin. 3. Hydralazine. 4. Insulin. 5. Losartan. 6. Metoprolol. 7. Renvela. ALLERGIES: PENICILLIN, TRAMADOL, and MORPHINE. SOCIAL HISTORY: Engaged to be . Nonsmoker. No history of alcohol use. HIV status unknown. FAMILY HISTORY: Unobtainable at this time. REVIEW OF SYSTEMS:Respiratory: No cough, shortness of breath, hemoptysis. Cardiac: No chest pain, palpitations. History of syncope. No history of murmur. Gastrointestinal: No abdominal pain, blood per rectum, hematemesis, abdominal pain. Genitourinary: End-stage renal disease. No history of dysuria, hematuria. PHYSICAL EXAMINATION:General: She was a well-nourished appearing female, eyes closed, unwilling to open them or unable to open them, and nonresponsive to verbal stimuli. Vital Signs: Her temperature was 100.8, pulse 109, blood pressure 122/62, respirations 20. HEENT: Reveals sclerae anicteric with no conjunctival petechiae. Neck: Supple in all directions without adenopathy. Lungs: Clear to percussion and auscultation. Heart: S1, S2, regular rhythm, without audible murmur or gallop. Abdomen: Soft, nontender, without hepatosplenomegaly. Extremities: Revealed diffuse edema of the left arm with a fistula in the left upper extremity which did not appear erythematous nor did I see any tracking upward of erythema proximally. The area did not appear to be tender and no drainage or fluctuance was evident. No peripheral petechiae were noted. LABORATORY DATA: The white count is 15.3, hemoglobin 10, platelets 267 with 87% polys, 7 lymphs, 4 monos. INR 0.99. Sodium on admission 127, potassium 5.8, glucose 845, AST 34, alkaline phosphatase 304. CPK 292. Troponin 0.02. test negative. Urinalysis pending. CSF: Zero white cells, zero red cells. Cultures of urine and blood currently pending. Chest x-ray was reviewed and shows cardiomegaly with a left-sided vascular stent from the left axillary area into the right atrium. ASSESSMENT: A 41-year-old insulin-dependent diabetic on dialysis with a fistula in the left arm presents now with altered mental status, recurrent seizures, and fever. Principal diagnoses as follows: Sepsis syndrome, consider Staphylococcus gram-negative organisms related to the fistula and dialysis. Altered mental status secondary to toxic metabolic encephalopathy. Seizure disorder, recurrent, in the setting of metabolic abnormalities. Hyperosmolar nonketotic electrolyte imbalance. Visual impairment/blind. End-stage renal disease. History of PENICILLIN reaction, unknown at this point. PLAN: Patient has already been treated with an initial dose of vancomycin 1 g and 2 g of aztreonam. Cultures of blood and urine currently pending. 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 Will continue with aztreonam for now. Await vancomycin level stat this morning, ESR, CRP, echocardiogram, and further recommendations regarding fistula management once blood cultures back. Case was discussed with the ICU staff and her fiance. An HIV test will be obtained for completeness. Critical care time spent with the patient 40 minutes. GILDARDO DUMAS M.D. [id number]
[2016-10-30] MEDS ORDERED: MAGNESIUM SULF 50% (8.12 MEQ/2 ML-1 GM VIAL) IVPB ONE (08:30)
[2016-10-30] MEDS ORDERED: PT OWN MED DRAWER 7, Y5N ONE (09:13)
[2016-10-30 09:33] LABS: HIV 1 & 2 AB NEGATIVE; HIV 1 AGp24 NEGATIVE
[2016-10-30] MEDS: PHENYTOIN SODIUM 100 MG/2 ML VIAL IVPB SCH (09:45)
[2016-10-30] MEDS: MUPIROCIN 2% TOPICAL OINTMENT FOR DECOLONIZATION NS SCH (09:45)
[2016-10-30] MEDS ORDERED: PHENYTOIN NA EXTENDED 100 MG CAPSULE (FP) PO SCH (10:00)
[2016-10-30] MEDS ORDERED: AZTREONAM 0.5 GM in DEXTROSE 5%-WATER - 50 ML IVPB SCH (10:00)
--- NOTE | 2016-10-30 11:23 | PN ---
Progress Note (short form) - Note Progress Note: Renal Follow up for ESRD on HD Pt seen and examined in the ICU lethargic but responds to verbal stimuli and opens eyes for a short period of time remains febrile s/p dialysis via Right femoral catheter yesterday s/p LP ECHO shows vegetation on tip of the Hero graft catheter Vital Signs Temperature 100.6 F H 10/30/16 07:00 Pulse Rate 107 H 10/30/16 07:00 Respiratory Rate 28 H 10/30/16 07:00 Blood Pressure 128/71 10/30/16 07:00 O2 Sat by Pulse Oximetry (%) 100 10/29/16 21:00 Intake & Output 10/27/16 10/28/16 10/29/16 10/30/16 23:59 23:59 23:59 23:59 Intake Total 1050 1496 Output Total 700 Balance 350 1496 Weight 129 lb 10.109 oz Gen: Lethargic, on face mask O2 CVS: tachycardic, no murmur Lungs CTA, no rales/wheeze Abd: soft NT/ND Ext: Trace to 1+ edema, no cyanosis or clubbing CBC, BMP 10/30/16 05:15 10/30/16 05:15 Current Medications Chlorhexidine Gluconate (Hibiclens For Decolonization -) 1 applic TP HS [facility] Last Admin: 10/29/16 22:24 Dose: 1 applic Aztreonam 0.5 gm/ Dextrose 50 mls @ 100 mls/hr IVPB BID [facility] PRN Reason: Protocol Last Admin: 10/30/16 09:45 Dose: 100 mls/hr Dextrose (D10w -) 1,000 mls @ 42 mls/hr IV ASDIR [facility] Last Admin: 10/30/16 08:19 Dose: 42 mls/hr Mupirocin (Bactroban Ointment (For Decolonization) -) 1 applic NS BID [facility] Stop: 11/03/16 21:59 Last Admin: 10/30/16 09:45 Dose: 1 applic Phenytoin Sodium (Dilantin Injection -) 200 mg IVPB BID [facility] Last Admin: 10/30/16 09:45 Dose: 200 mg A/P 41 year old woman with PMhx of ESRD on HD (Started this May,), insulin dependent diabetes, hypertension presented with AMS and suspected seizure at home with witnessed seizure in the ED. #Febrile/Sepsis/Suspected Endocarditis Echo showed possible vegetation remains febrile Cultures pending CSF showed no WBC continue Abx as per ID #Seizure/AMS remains febrile on Dilatin s/p LP Neurology consult noted #ESRD on HD with hyperkalemia s/p dialysis via femoral catheter yesterday as HERO catheter was not functioning no acute indication for dialysis today Trend BUN/Cr Pt is pending transfer to tertiary care center will need to have Hero graft removed if there is a sign of vegetation Jose Luis Vazquez DO Problem List - Problems (1) Seizure Code(s): R56.9 - UNSPECIFIED CONVULSIONS (2) ESRD (end stage renal disease) on dialysis Code(s): N18.6 - END STAGE RENAL DISEASE Z99.2 - DEPENDENCE ON RENAL DIALYSIS (3) Hyperkalemia Code(s): E87.5 - HYPERKALEMIA (4) Hyperglycemia Code(s): R73.9 - HYPERGLYCEMIA, UNSPECIFIED
--- NOTE | 2016-10-30 12:36 | PN ---
Progress Note (short form) - Note Progress Note: Vascular surgery Pt seen and examined. No bruit in Hero graft. Echo shows vegetation on valve and hero graft. Pt pending transfer to tertiary care center Will need to have graft removed. Vegetation on valve will need to be addressed. Geo Chavez DO
--- NOTE | 2016-10-30 12:56 | PN ---
Teaching Attending Note Name of Resident: Pietro Bear ATTENDING PHYSICIAN STATEMENT I saw and evaluated the patient. I reviewed the resident's note and discussed the case with the resident. I agree with the resident's findings and plan as documented. SUBJECTIVE: Patient seen and examined in the ICU. Lethargic. ECHO : likely vegetation on the distal tip of the catheter and on the mitral valve. Significant other at the bedside. Update of her condition given. He has agreed for transfer to [facility] for tertiary care. No further seizures noted overnight. Cultures are still pending. Intake & Output 10/27/16 10/28/16 10/29/16 10/30/16 23:59 23:59 23:59 23:59 Intake Total 1050 1496 Output Total 700 Balance 350 1496 Weight 129 lb 10.109 oz Last Vital Signs Temp Pulse Resp BP Pulse Ox 100.6 F H 107 H 28 H 128/71 100 10/30/16 07:00 10/30/16 07:00 10/30/16 09:00 10/30/16 07:00 10/30/16 09:00 Active Medications Chlorhexidine Gluconate (Hibiclens For Decolonization -) 1 applic TP HS [facility] Last Admin: 10/29/16 22:24 Dose: 1 applic Aztreonam 0.5 gm/ Dextrose 50 mls @ 100 mls/hr IVPB BID [facility] PRN Reason: Protocol Last Admin: 10/30/16 09:45 Dose: 100 mls/hr Dextrose (D10w -) 1,000 mls @ 83 mls/hr IV ASDIR [facility] Mupirocin (Bactroban Ointment (For Decolonization) -) 1 applic NS BID [facility] Stop: 11/03/16 21:59 Last Admin: 10/30/16 09:45 Dose: 1 applic Phenytoin Sodium (Dilantin Injection -) 200 mg IVPB BID [facility] Last Admin: 10/30/16 09:45 Dose: 200 mg Constitutional: Yes: Lethargic and confused Eyes: No: Sclera Icterus HENT: Yes: Atraumatic, Normocephalic Neck: Yes: Supple, Trachea Midline Cardiovascular: Yes: Tachycardia Respiratory: Yes: On VM O2, No: Accessory Muscle Use, Intubated, Rhonchi, Stridor, Wheezes Gastrointestinal: Yes: Soft Renal/: Yes: Other (HD dependent) Musculoskeletal: Yes: WNL Extremities: Yes: WNL Edema: No Peripheral Pulses WNL: Yes Integumentary: Yes: WNL Neurological: Yes: Confusion, Lethargy. No: Facial Droop Laboratory Results - last 24 hr 10/29/16 10/29/16 10/29/16 12:46 17:11 17:11 WBC RBC Hgb Hct MCV MCH MCHC RDW Plt Count MPV Neutrophils % Lymphocytes % Monocytes % Eosinophils % Basophils % Other Cells # Sodium Potassium Chloride Carbon Dioxide Anion Gap BUN Creatinine Creat Clearance w eGFR POC Glucometer Random Glucose Cancelled Hemoglobin A1c % Lactic Acid 1.9 Calcium Phosphorus Magnesium Total Bilirubin AST ALT Alkaline Phosphatase C-Reactive Protein Total Protein Albumin Triglycerides Cholesterol Total LDL Cholesterol HDL Cholesterol CSF Appearance CSF Color CSF WBC CSF RBC CSF Neutrophils CSF Lymphocytes CSF Monocytes CSF Eosinophils CSF Basophils CSF Macrophages CSF Plasma Cells CSF Diff Comment CSF Comment CSF Glucose CSF Total Protein Random Vancomycin Opiates Screen Methadone Screen Barbiturate Screen Phencyclidine Screen Ur Amphetamines Screen MDMA (Ecstasy) Screen Benzodiazepines Screen Cocaine Screen U Marijuana (THC) Screen Hepatitis C Antibody Cancelled HIV 1&2 Antibody Screen HIV P24 Antigen 10/29/16 10/29/16 10/29/16 17:11 17:11 18:42 WBC RBC Hgb Hct MCV MCH MCHC RDW Plt Count MPV Neutrophils % Lymphocytes % Monocytes % Eosinophils % Basophils % Other Cells # Sodium 135 L Potassium 4.3 D Chloride 103 Carbon Dioxide 22 Anion Gap 10 BUN 39 H Creatinine 4.9 H Creat Clearance w eGFR POC Glucometer 145.71647 Random Glucose 266 H D Hemoglobin A1c % Lactic Acid 4.2 H* Calcium 7.3 L Phosphorus Magnesium Total Bilirubin AST ALT Alkaline Phosphatase C-Reactive Protein Total Protein Albumin Triglycerides Cholesterol Total LDL Cholesterol HDL Cholesterol CSF Appearance CSF Color CSF WBC CSF RBC CSF Neutrophils CSF Lymphocytes CSF Monocytes CSF Eosinophils CSF Basophils CSF Macrophages CSF Plasma Cells CSF Diff Comment CSF Comment CSF Glucose CSF Total Protein Random Vancomycin Opiates Screen Methadone Screen Barbiturate Screen Phencyclidine Screen Ur Amphetamines Screen MDMA (Ecstasy) Screen Benzodiazepines Screen Cocaine Screen U Marijuana (THC) Screen Hepatitis C Antibody HIV 1&2 Antibody Screen HIV P24 Antigen 10/29/16 10/29/16 10/29/16 19:20 19:30 19:41 WBC RBC Hgb Hct MCV MCH MCHC RDW Plt Count MPV Neutrophils % Lymphocytes % Monocytes % Eosinophils % Basophils % Other Cells # Sodium 137 Potassium 3.7 Chloride 101 Carbon Dioxide 29 D Anion Gap 7 L BUN 17 D Creatinine 2.4 H D Creat Clearance w eGFR POC Glucometer Random Glucose 107 H D Hemoglobin A1c % Lactic Acid 3.0 H* Calcium 7.6 L Phosphorus Magnesium Total Bilirubin AST ALT Alkaline Phosphatase C-Reactive Protein Total Protein Albumin 2.9 L Triglycerides Cholesterol Total LDL Cholesterol HDL Cholesterol CSF Appearance CSF Color CSF WBC CSF RBC CSF Neutrophils CSF Lymphocytes CSF Monocytes CSF Eosinophils CSF Basophils CSF Macrophages CSF Plasma Cells CSF Diff Comment CSF Comment CSF Glucose CSF Total Protein Random Vancomycin Opiates Screen Methadone Screen Barbiturate Screen Phencyclidine Screen Ur Amphetamines Screen MDMA (Ecstasy) Screen Benzodiazepines Screen Cocaine Screen U Marijuana (THC) Screen Hepatitis C Antibody HIV 1&2 Antibody Screen HIV P24 Antigen 10/29/16 10/29/16 10/29/16 19:43 20:58 21:00 WBC RBC Hgb Hct MCV MCH MCHC RDW Plt Count MPV Neutrophils % Lymphocytes % Monocytes % Eosinophils % Basophils % Other Cells # Sodium Potassium Chloride Carbon Dioxide Anion Gap BUN Creatinine Creat Clearance w eGFR POC Glucometer 122.03178 108.81980 Random Glucose Hemoglobin A1c % Lactic Acid Calcium Phosphorus Magnesium Total Bilirubin AST ALT Alkaline Phosphatase C-Reactive Protein Total Protein Albumin Triglycerides Cholesterol Total LDL Cholesterol HDL Cholesterol CSF Appearance CSF Color CSF WBC CSF RBC CSF Neutrophils CSF Lymphocytes CSF Monocytes CSF Eosinophils CSF Basophils CSF Macrophages CSF Plasma Cells CSF Diff Comment CSF Comment CSF Glucose CSF Total Protein Random Vancomycin Opiates Screen Negative Methadone Screen Negative Barbiturate Screen Negative Phencyclidine Screen Negative Ur Amphetamines Screen Negative MDMA (Ecstasy) Screen Negative Benzodiazepines Screen Negative Cocaine Screen Negative U Marijuana (THC) Screen Negative Hepatitis C Antibody HIV 1&2 Antibody Screen HIV P24 Antigen 10/29/16 10/29/16 10/29/16 22:12 23:17 23:19 WBC RBC Hgb Hct MCV MCH MCHC RDW Plt Count MPV Neutrophils % Lymphocytes % Monocytes % Eosinophils % Basophils % Other Cells # Sodium Potassium Chloride Carbon Dioxide Anion Gap BUN Creatinine Creat Clearance w eGFR POC Glucometer 110.22743 87.07570 Random Glucose Hemoglobin A1c % Lactic Acid Calcium Phosphorus Magnesium Total Bilirubin AST ALT Alkaline Phosphatase C-Reactive Protein Total Protein Albumin Triglycerides Cholesterol Total LDL Cholesterol HDL Cholesterol CSF Appearance Clear CSF Color Colorless CSF WBC 0 CSF RBC 0 CSF Neutrophils Y CSF Lymphocytes CSF Monocytes CSF Eosinophils CSF Basophils CSF Macrophages CSF Plasma Cells CSF Diff Comment CSF Comment CSF Glucose Cancelled CSF Total Protein Cancelled Random Vancomycin Opiates Screen Methadone Screen Barbiturate Screen Phencyclidine Screen Ur Amphetamines Screen MDMA (Ecstasy) Screen Benzodiazepines Screen Cocaine Screen U Marijuana (THC) Screen Hepatitis C Antibody HIV 1&2 Antibody Screen HIV P24 Antigen 10/30/16 10/30/16 10/30/16 00:01 00:01 00:01 WBC RBC Hgb Hct MCV MCH MCHC RDW Plt Count MPV Neutrophils % Lymphocytes % Monocytes % Eosinophils % Basophils % Other Cells # Cancelled Sodium 139 Potassium 3.6 Chloride 101 Carbon Dioxide 30 Anion Gap 8 BUN 22 H D Creatinine 3.3 H D Creat Clearance w eGFR POC Glucometer Random Glucose 54 L D Hemoglobin A1c % Lactic Acid Calcium 7.1 L Phosphorus Magnesium Total Bilirubin AST ALT Alkaline Phosphatase C-Reactive Protein Total Protein Albumin Triglycerides Cholesterol Total LDL Cholesterol HDL Cholesterol CSF Appearance Cancelled Clear CSF Color Cancelled Colorless CSF WBC Cancelled 0 CSF RBC Cancelled 0 CSF Neutrophils Cancelled Y CSF Lymphocytes Cancelled CSF Monocytes Cancelled CSF Eosinophils Cancelled CSF Basophils Cancelled CSF Macrophages Cancelled CSF Plasma Cells Cancelled CSF Diff Comment Cancelled CSF Comment Cancelled CSF Glucose Cancelled 67 CSF Total Protein Cancelled 38 Random Vancomycin Opiates Screen Methadone Screen Barbiturate Screen Phencyclidine Screen Ur Amphetamines Screen MDMA (Ecstasy) Screen Benzodiazepines Screen Cocaine Screen U Marijuana (THC) Screen Hepatitis C Antibody HIV 1&2 Antibody Screen HIV P24 Antigen 10/30/16 10/30/16 10/30/16 00:40 01:31 02:40 WBC RBC Hgb Hct MCV MCH MCHC RDW Plt Count MPV Neutrophils % Lymphocytes % Monocytes % Eosinophils % Basophils % Other Cells # Sodium Potassium Chloride Carbon Dioxide Anion Gap BUN Creatinine Creat Clearance w eGFR POC Glucometer 92.73227 91.96738 78.74776 Random Glucose Hemoglobin A1c % Lactic Acid Calcium Phosphorus Magnesium Total Bilirubin AST ALT Alkaline Phosphatase C-Reactive Protein Total Protein Albumin Triglycerides Cholesterol Total LDL Cholesterol HDL Cholesterol CSF Appearance CSF Color CSF WBC CSF RBC CSF Neutrophils CSF Lymphocytes CSF Monocytes CSF Eosinophils CSF Basophils CSF Macrophages CSF Plasma Cells CSF Diff Comment CSF Comment CSF Glucose CSF Total Protein Random Vancomycin Opiates Screen Methadone Screen Barbiturate Screen Phencyclidine Screen Ur Amphetamines Screen MDMA (Ecstasy) Screen Benzodiazepines Screen Cocaine Screen U Marijuana (THC) Screen Hepatitis C Antibody HIV 1&2 Antibody Screen HIV P24 Antigen 10/30/16 10/30/16 10/30/16 03:55 04:15 05:15 WBC 15.3 H RBC 3.91 Hgb 10.0 L Hct 31.8 L MCV 81.5 MCH 25.7 MCHC 31.6 L RDW 16.7 H Plt Count 267 D MPV 10.9 Neutrophils % 87.4 H Lymphocytes % 7.6 L D Monocytes % 4.4 Eosinophils % 0.1 D Basophils % 0.5 Other Cells # Sodium Potassium Chloride Carbon Dioxide Anion Gap BUN Creatinine Creat Clearance w eGFR POC Glucometer [phone] Random Glucose Hemoglobin A1c % Lactic Acid Calcium Phosphorus Magnesium Total Bilirubin AST ALT Alkaline Phosphatase C-Reactive Protein Total Protein Albumin Triglycerides Cholesterol Total LDL Cholesterol HDL Cholesterol CSF Appearance CSF Color CSF WBC CSF RBC CSF Neutrophils CSF Lymphocytes CSF Monocytes CSF Eosinophils CSF Basophils CSF Macrophages CSF Plasma Cells CSF Diff Comment CSF Comment CSF Glucose CSF Total Protein Random Vancomycin Opiates Screen Methadone Screen Barbiturate Screen Phencyclidine Screen Ur Amphetamines Screen MDMA (Ecstasy) Screen Benzodiazepines Screen Cocaine Screen U Marijuana (THC) Screen Hepatitis C Antibody HIV 1&2 Antibody Screen HIV P24 Antigen 10/30/16 10/30/16 10/30/16 05:15 05:15 05:15 WBC RBC Hgb Hct MCV MCH MCHC RDW Plt Count MPV Neutrophils % Lymphocytes % Monocytes % Eosinophils % Basophils % Other Cells # Sodium 136 Potassium 4.1 Chloride 98 Carbon Dioxide 28 Anion Gap 10 BUN 24 H Creatinine 3.7 H Creat Clearance w eGFR 13.64 POC Glucometer Random Glucose 59 L Hemoglobin A1c % 11.2 H Lactic Acid Calcium 6.9 L* Phosphorus 4.1 Magnesium 1.6 L Total Bilirubin 0.6 D AST 42 H D ALT 54 D Alkaline Phosphatase 191 H D C-Reactive Protein Total Protein 5.5 L Albumin 2.2 L D Triglycerides 75 Cholesterol 124 Total LDL Cholesterol 51 HDL Cholesterol 64 H CSF Appearance CSF Color CSF WBC CSF RBC CSF Neutrophils CSF Lymphocytes CSF Monocytes CSF Eosinophils CSF Basophils CSF Macrophages CSF Plasma Cells CSF Diff Comment CSF Comment CSF Glucose CSF Total Protein Random Vancomycin Opiates Screen Methadone Screen Barbiturate Screen Phencyclidine Screen Ur Amphetamines Screen MDMA (Ecstasy) Screen Benzodiazepines Screen Cocaine Screen U Marijuana (THC) Screen Hepatitis C Antibody HIV 1&2 Antibody Screen HIV P24 Antigen 08/04/17 08/04/17 08/04/17 05:19 06:02 07:24 WBC RBC Hgb Hct MCV MCH MCHC RDW Plt Count MPV Neutrophils % Lymphocytes % Monocytes % Eosinophils % Basophils % Other Cells # Sodium Potassium Chloride Carbon Dioxide Anion Gap BUN Creatinine Creat Clearance w eGFR POC Glucometer 85.11018 84.34322 87.55668 Random Glucose Hemoglobin A1c % Lactic Acid Calcium Phosphorus Magnesium Total Bilirubin AST ALT Alkaline Phosphatase C-Reactive Protein Total Protein Albumin Triglycerides Cholesterol Total LDL Cholesterol HDL Cholesterol CSF Appearance CSF Color CSF WBC CSF RBC CSF Neutrophils CSF Lymphocytes CSF Monocytes CSF Eosinophils CSF Basophils CSF Macrophages CSF Plasma Cells CSF Diff Comment CSF Comment CSF Glucose CSF Total Protein Random Vancomycin Opiates Screen Methadone Screen Barbiturate Screen Phencyclidine Screen Ur Amphetamines Screen MDMA (Ecstasy) Screen Benzodiazepines Screen Cocaine Screen U Marijuana (THC) Screen Hepatitis C Antibody HIV 1&2 Antibody Screen HIV P24 Antigen 10/30/16 10/30/16 10/30/16 08:20 08:20 08:20 WBC RBC Hgb Hct MCV MCH MCHC RDW Plt Count MPV Neutrophils % Lymphocytes % Monocytes % Eosinophils % Basophils % Other Cells # Sodium Potassium Chloride Carbon Dioxide Anion Gap BUN Creatinine Creat Clearance w eGFR POC Glucometer Random Glucose Hemoglobin A1c % Lactic Acid Calcium Phosphorus Magnesium Total Bilirubin AST ALT Alkaline Phosphatase C-Reactive Protein 5.9 H Total Protein Albumin Triglycerides Cholesterol Total LDL Cholesterol HDL Cholesterol CSF Appearance CSF Color CSF WBC CSF RBC CSF Neutrophils CSF Lymphocytes CSF Monocytes CSF Eosinophils CSF Basophils CSF Macrophages CSF Plasma Cells CSF Diff Comment CSF Comment CSF Glucose CSF Total Protein Random Vancomycin 7.552 Opiates Screen Methadone Screen Barbiturate Screen Phencyclidine Screen Ur Amphetamines Screen MDMA (Ecstasy) Screen Benzodiazepines Screen Cocaine Screen U Marijuana (THC) Screen Hepatitis C Antibody HIV 1&2 Antibody Screen Negative HIV P24 Antigen Negative 10/30/16 10/30/16 08:51 10:35 WBC RBC Hgb Hct MCV MCH MCHC RDW Plt Count MPV Neutrophils % Lymphocytes % Monocytes % Eosinophils % Basophils % Other Cells # Sodium Potassium Chloride Carbon Dioxide Anion Gap BUN Creatinine Creat Clearance w eGFR POC Glucometer 85.61732 74.66732 Random Glucose Hemoglobin A1c % Lactic Acid Calcium Phosphorus Magnesium Total Bilirubin AST ALT Alkaline Phosphatase C-Reactive Protein Total Protein Albumin Triglycerides Cholesterol Total LDL Cholesterol HDL Cholesterol CSF Appearance CSF Color CSF WBC CSF RBC CSF Neutrophils CSF Lymphocytes CSF Monocytes CSF Eosinophils CSF Basophils CSF Macrophages CSF Plasma Cells CSF Diff Comment CSF Comment CSF Glucose CSF Total Protein Random Vancomycin Opiates Screen Methadone Screen Barbiturate Screen Phencyclidine Screen Ur Amphetamines Screen MDMA (Ecstasy) Screen Benzodiazepines Screen Cocaine Screen U Marijuana (THC) Screen Hepatitis C Antibody HIV 1&2 Antibody Screen HIV P24 Antigen Problem List - Problems (1) Altered mental status Code(s): R41.82 - ALTERED MENTAL STATUS, UNSPECIFIED Qualifiers: Altered mental status type: unspecified Qualified Code(s): R41.82 - Altered mental status, unspecified (2) ESRD (end stage renal disease) on dialysis Code(s): N18.6 - END STAGE RENAL DISEASE Z99.2 - DEPENDENCE ON RENAL DIALYSIS (3) Seizure Code(s): R56.9 - UNSPECIFIED CONVULSIONS (4) Fever Code(s): R50.9 - FEVER, UNSPECIFIED (5) Hyperglycemic hyperosmolar nonketotic coma Code(s): E11.01 - TYPE 2 DIABETES MELLITUS WITH HYPEROSMOLARITY WITH COMA Assessment/Plan ABX oer ID Cautious hydration Follow cultures Seizure precautions Neuro evaluation noted Dilantin For transfer to [facility]. Family has given consent Dr Oscar Total Critical Care Time: 40 Critical Care Statement: The care of this patient involved high complexity decision making to prevent further life threatening deterioration of the patient 's condition and/or to evalute & treat vital organ system(s) failure or risk of failure. Problem List - Problems (1) Altered mental status Code(s): R41.82 - ALTERED MENTAL STATUS, UNSPECIFIED Qualifiers: Altered mental status type: unspecified Qualified Code(s): R41.82 - Altered mental status, unspecified (2) ESRD (end stage renal disease) on dialysis Code(s): N18.6 - END STAGE RENAL DISEASE Z99.2 - DEPENDENCE ON RENAL DIALYSIS (3) Seizure Code(s): R56.9 - UNSPECIFIED CONVULSIONS (4) Fever Code(s): R50.9 - FEVER, UNSPECIFIED (5) Hyperglycemic hyperosmolar nonketotic coma Code(s): E11.01 - TYPE 2 DIABETES MELLITUS WITH HYPEROSMOLARITY WITH COMA
--- NOTE | 2016-10-30 13:46 | PN ---
Progress Note, Physician History of Present Illness: patient has echo done this AM shows vegetation on tip of hero catheter which is in the right atrium and a vegetation on the mitral valve patient remains febrile was having seizures yesterday status epilepticus neurology consulted LP done overnight patient became hypoglycemic and required D5W and D50 pushes - Current Medication List Current Medications: Active Medications Chlorhexidine Gluconate (Hibiclens For Decolonization -) 1 applic TP HS [facility] Last Admin: 10/29/16 22:24 Dose: 1 applic Aztreonam 0.5 gm/ Dextrose 50 mls @ 100 mls/hr IVPB BID [facility] PRN Reason: Protocol Last Admin: 10/30/16 09:45 Dose: 100 mls/hr Dextrose (D10w -) 1,000 mls @ 83 mls/hr IV [facility] Mupirocin (Bactroban Ointment (For Decolonization) -) 1 applic NS BID COUNT [facility] Stop: 11/03/16 21:59 Last Admin: 10/30/16 09:45 Dose: 1 applic Phenytoin Sodium (Dilantin Injection -) 200 mg IVPB BID [facility] Last Admin: 10/30/16 09:45 Dose: 200 mg - Objective Vital Signs: Vital Signs Temperature 100.6 F H 10/30/16 07:00 Pulse Rate 107 H 10/30/16 07:00 Respiratory Rate 28 H 10/30/16 09:00 Blood Pressure 128/71 10/30/16 07:00 O2 Sat by Pulse Oximetry (%) 100 10/30/16 09:00 Constitutional: Yes: Other (lehtargic) Eyes: Yes: Other (right pupil slightly larger than left pupil) HENT: Yes: Atraumatic, Normocephalic Neck: Yes: Supple, Trachea Midline Cardiovascular: Yes: Regular Rate and Rhythm Respiratory: Yes: CTA Bilaterally, On Venti-Mask Gastrointestinal: Yes: Soft. No: Tenderness Genitourinary: Yes: Santana Present Edema: Yes Edema: LUE: 2+ Neurological: Yes: Lethargy (but slightly arousable) Labs: CBC, BMP 10/30/16 05:15 10/30/16 05:15 INR, PTT INR 0.99 (0.82-1.09) 10/29/16 10:34 - ....Imaging Chest X-ray: Report Reviewed, Image Reviewed Cat Scan: Report Reviewed, Image Reviewed Ultrasound: Report Reviewed, Image Reviewed Assessment/Plan 41F with multiple medical problems presents to the ICU with AMS and hyperglycemia. Problem List: DM HTN HLD ESRD on HD MWF Seizure disorder Diabetic retinopahty infected Hero graft endocarditis Plan: Patient dialyzed yesterday 2.5kg removed ID consult appreciated continue ABx Echo results noted cardiology consulted endocrinology consulted-but will not be seen as patient is being transferred change fluids to D10W @ 83ml/hr for hypoglycemia continue phenytoin f/u neurology f/u LP studies f/u cultures Patient to be transferred to [facility] for possible valve replacement aand continued treatment of sepsis from endocarditis. she will likely need to have the graft removed once assessed by the surgeons at [place]
[2016-10-30 14:00] VITALS: BP 125/69; PULSE 89; TEMP 98.5
[2016-10-31 10:11] LABS: HEP B SURFACE AB Non Reactive (.)
[2016-11-01 06:41] LABS: HSV 2 DNA. Negative (Negative)
[2016-11-03 12:57] LABS: LYME IGG WB INTERP. Negative (.); LYME IGM WB. INTERP Negative (.); P18 AB Absent (.); P23 AB Absent (.); P28 AB Absent (.); P30 AB Absent (.); P39 AB Absent (.); P41 AB Absent (.); P45 AB Absent (.); P58 AB Absent (.); P66 AB Absent (.); P93 AB Absent (.)
[2016-11-03 16:26] LABS: ALBUMIN,CSF 55.2 % (56.8-76.4); ALPHA-1-GLOBULIN,CSF 6.1 % (1.1-6.6); GAMMA GLOBULIN,CSF 11.9 % (3.0-13.0); M-SPIKE CSF Not Observed % (Not Observed); PRE-ALBUMIN CSF 3.5 % (2.2-7.1); TOTAL PROTEIN, CSF 42.4 mg/dL (0.0-44.0)
[2016-11-04 06:06] LABS: ZIKA VIRUS SER. Negative (Negative); ZIKA VIRUS UR. Negative (Negative)
[2016-11-05 11:30] LABS: HERPES SIMPLEX TYPE 2 IgG CSF 0.73 IV (<=0.89); HSV 1/2 CSF 0.18 IV (<=0.89); HSV 1/2 IGG CSF 1.89 IV (<=0.89); MUMPS AB IGG CSF < 5.0 AU/mL (<=10.9); MUMPS AB IGM CSF 0.17 IV (<=0.79); VARICELLA-ZOSTER IGM CSF 0.06 ISR (<=0.90); VARICELLA-ZOSTER IgG CSF <= 10 IV (.)
== END 2016-10-30 14:46 | disposition short-term general hospital (02) | DRG 314 ==
LOC: JER 10:01 → JERBED 13:09 → JICU 15:03
PROVIDERS: ADMIT Internal Medicine; ATTEND Internal Medicine
PROC: 06HM33Z Insertion of Infusion Device into Right Femoral Vein, Percutaneous Approach (ICD-10-PCS; principal; 2016-10-29)
PROC: 5A1D00Z (ICD-10-PCS; 2016-10-29)
PROC: 009U3ZZ Drainage of Spinal Canal, Percutaneous Approach (ICD-10-PCS; 2016-10-29)
DX: T82.7XXA Infection and inflammatory reaction due to other cardiac and vascular devices, implants and grafts, initial encounter (principal); A41.9 Sepsis, unspecified organism; N18.6 End stage renal disease; E11.01 Type 2 diabetes mellitus with hyperosmolarity with coma; G93.41 Metabolic encephalopathy; G40.89 Other seizures; I12.0 Hypertensive chronic kidney disease with stage 5 chronic kidney disease or end stage renal disease; E87.1 Hypo-osmolality and hyponatremia; E87.2 Acidosis; I38 Endocarditis, valve unspecified; G40.801 Other epilepsy, not intractable, with status epilepticus; I05.8 Other rheumatic mitral valve diseases; E11.22 Type 2 diabetes mellitus with diabetic chronic kidney disease; E87.5 Hyperkalemia; E11.319 Type 2 diabetes mellitus with unspecified diabetic retinopathy without macular edema; D72.828 Other elevated white blood cell count; E78.5 Hyperlipidemia, unspecified; H54.7 Unspecified visual loss; Z99.2 Dependence on renal dialysis; Z79.4 Long term (current) use of insulin; Y83.8 Other surgical procedures as the cause of abnormal reaction of the patient, or of later complication, without mention of misadventure at the time of the procedure; Y92.89 Other specified places as the place of occurrence of the external cause
CPT/HCPCS: 36415; 70450-TC; 71010-TC; 80048; 80053; 80061; 80307; 81003; 82009; 82040; 82553; 82803; 82945; 83036; 83605; 83721; 83735; 83930; 84100; 84157; 84166; 84484; 84703; 85025; 85610; 86140; 86617; 86694; 86704; 86706; 86708; 86735; 86765; 86787; 86788; 86789; 86803; 86850; 86900; 86901; 87040; 87070; 87086; 87116; 87205; 87206; 87252; 87340; 87389; 87529; 87556; 87899; 89050; 93005; 93010; 93306-TC; 93971; 99285-25; G0480